=== PATIENT | female | born 1985 | race Caucasian/White ===

== ENCOUNTER 2016-08-12 06:27 | Inpatient (IN) | payer MEDICAID ==
[~2016-08-12 06:27] MED LIST: COLACE100 M1 PO; FLAGYL500 M1 PO; IBUPROFEN800 M1 PO; IRON325 M3 PO; NO HOME MEDICATION XX; PRENATAL VITAM1 EA11; PRENATAL VITAM1 EA11 PO; PROVENTIL HFA6.7 G1 IH; SYNTHROID50 MC1 PO; ZOFRAN4 M2 PO
[2016-08-12 07:59] LABS: BASO % 0.1 % (0-2); EOS % 1.8 % (0-7); EOSINOPHIL ABSOLUTE COUNT 0.2 tho/cmm (0.0-0.7); HCT-HEMATOCRIT 31.3 % (34.0-49.0); HGB-HEMOGLOBIN 10.4 gm/dl (12.0-15.5); IMMATURE GRANULOCYTES ABSOLUTE 0.03 tho/cmm (0-0.03); IMMATURE GRANULOCYTES PERCENT 0.3 % (0-0.3); LYMPH % 19.6 % (20-45); MCH (MEAN CORPUSCULAR HGB) 28.1 pg (28.0-32.0); MCHC MEAN CORPUSCULAR HGB CONC 33.2 % (32.0-36.0); MCV (MEAN CELL VOLUME) 84.6 fl (82.0-96.0); MEAN PLATELET VOLUME 10.9 cmc (9.4-12.4); MONO % 4.9 % (0-12); MONOCYTE ABSOLUTE COUNT 0.5 tho/cmm (0.0-1.2); NEUTROPHIL ABSOLUTE COUNT 7.6 tho/cmm (1.6-8.0); NEUTROPHIL-AUTOMATED 7.6 tho/cmm (1.6-8.0); NEUTROPHILS % 73.3 % (40-80); PLATELET COUNT 239 tho/cmm (150-450); RED CELL DISTRIBUTION WIDTH 16.3 % (12.4-16.4); WHITE BLOOD COUNT 10.4 tho/cmm (4.0-10.0)
[2016-08-13 13:58] LABS: BASO % 0.2 % (0-2); EOS % 1.9 % (0-7); EOSINOPHIL ABSOLUTE COUNT 0.2 tho/cmm (0.0-0.7); HCT-HEMATOCRIT 29.9 % (34.0-49.0); HGB-HEMOGLOBIN 9.9 gm/dl (12.0-15.5); IMMATURE GRANULOCYTES ABSOLUTE 0.03 tho/cmm (0-0.03); IMMATURE GRANULOCYTES PERCENT 0.2 % (0-0.3); LYMPH % 13.7 % (20-45); LYMPH ABSOLUTE COUNT 1.7 tho/cmm (0.8-4.5); MCH (MEAN CORPUSCULAR HGB) 28.1 pg (28.0-32.0); MCHC MEAN CORPUSCULAR HGB CONC 33.1 % (32.0-36.0); MCV (MEAN CELL VOLUME) 84.9 fl (82.0-96.0); MEAN PLATELET VOLUME 10.9 cmc (9.4-12.4); MONO % 5.2 % (0-12); MONOCYTE ABSOLUTE COUNT 0.7 tho/cmm (0.0-1.2); NEUTROPHIL ABSOLUTE COUNT 9.9 tho/cmm (1.6-8.0); NEUTROPHIL-AUTOMATED 9.9 tho/cmm (1.6-8.0); NEUTROPHILS % 78.8 % (40-80); PLATELET COUNT 239 tho/cmm (150-450); RED BLOOD COUNT 3.52 mil/cmm (4.00-5.20); RED CELL DISTRIBUTION WIDTH 16.5 % (12.4-16.4); WHITE BLOOD COUNT 12.6 tho/cmm (4.0-10.0)
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
[2016-08-14] MEDS ORDERED: PRENATAL-U CAPS1 CAP PO (11:00)
[2016-08-14] MEDS ORDERED: IBUPROFEN800 M1 PO (11:00)
[2016-08-14] MEDS ORDERED: SYNTHROID88 MC1 PO (11:03)
== END 2016-08-14 13:55 | DRG 775 ==
LOC: LDR 06:27 → OBGD 19:37
PROVIDERS: Obstetrics & Gynecology; ADMIT Obstetrics & Gynecology
PROC: 10E0XZZ Delivery of Products of Conception, External Approach (ICD-10-PCS; principal; 2016-08-12)
DX: O99.824 Streptococcus B carrier state complicating childbirth (principal); E03.9 Hypothyroidism, unspecified; O99.284 Endocrine, nutritional and metabolic diseases complicating childbirth; O09.33 Supervision of pregnancy with insufficient antenatal care, third trimester; O99.334 Smoking (tobacco) complicating childbirth; F17.210 Nicotine dependence, cigarettes, uncomplicated; Z3A.36 36 weeks gestation of pregnancy; Z37.0 Single live birth
CPT/HCPCS: J2405; J2540; J2590